=== PATIENT | male | born 1955 | race Caucasian/White ===

== ENCOUNTER 2024-07-24 16:51 | Emergency (ER) | payer OTHER ==
--- OUTSIDE RECORDS SUMMARY | 2024-07-24 16:56 | XMS REPORT | Continuity of Care Document ---
Author Name Unknown Address [address] [facility] [address] [place] [address] [facility] Address [address] [facility] [address] [place] [address] Care Team Providers Care Firer Low Pressure Name Role Phone Jason Crain Attending Clinician Unavailable Payers Payer Name Policy Type Policy Number Effective Date Expiration Date Source [facility] (MEDICARE REPLACEMENT HMO) [id number] 00:00:00 [place] [id number] [place] [id number] [place] [id number] [place] [id number] [place] [id number] [facility] Problems Condition Name Condition Details Condition Category Status Onset Date Resolution Date Last Treatment Date Treating Clinician Comments Source Chronic kidney disease stage 3 (disorder) Chronic kidney disease, stage 3 unspecifie d Problem [facility] [id number] Douglas's esophagus without dysplasia Problem [facility] [id number] KOURTNEY (generaliz ed anxiety disorder) Problem [facility] [id number] GERD without esophagiti s Problem [facility] [id number] Type 2 diabetes mellitus with diabetic chronic kidney disease Problem [facility] [id number] Mixed hyperlipid emia Problem [facility] [id number] Essential (primary) hypertensi on Problem [facility] [id number] Chewing tobacco nicotine dependence without complicati on Problem [facility] [id number] Type 2 diabetes mellitus with hyperglyce jie, without long-term current use of insulin Problem [facility] Anemia Anemia, unspecifie d type Problem [facility] [id number] Essential tremor Problem [facility] Allergies, Adverse Reactions, Alerts Allergy Name Allergy Type Status Severity Reaction(s) Onset Date Inactive Date Treating Clinician Comments Source sulfamet hoxazole / trimetho prim sulfamet hoxazole / trimetho prim Active Unknown [facility] Social History Social Habit Start Date Stop Date Quantity Comments Source History of Tobacco Use [facility] Sex Assigned At [facility] Smoking Status Start Date Stop Date Source Former Smoker 2024-07-05 00:00:00 2024-07-05 00:00:00 [facility] Medications Ordered Medication Name Filled Medication Name Start Date Stop Date Current Medication? Ordering Clinician Indication Dosage Frequency Signature (SIG) Comments Components Source Amoxicillin -Pot Clavulanate 500-125 MG Amoxicillin -Pot Clavulanate 500-125 MG 05-11 00:00: 00 No 1{table t} BID Amoxicilli n-Pot Clavulanat e 500-125 MG Promethazin e-DM 6.25-15 MG/5ML Promethazin e-DM 6.25-15 MG/5ML 05-11 00:00: 00 No 5{ml_as _needed } QID Promethazi ne-DM 6.25-15 MG/5ML Janumet XR 50mg/1,000m g Janumet XR 50mg/1,000m g No 1{table t} BID Janumet XR 50mg/1,000 mg Simvastatin 20 MG Simvastatin 20 MG No 1{table t_in_th e_eveni ng} QD Simvastati n 20 MG Valsartan-h ydroCHLOROt hiazide 160-12.5 MG Valsartan-h ydroCHLOROt hiazide 160-12.5 MG No 1{table t} QD Valsartan- hydroCHLOR Othiazide 160-12.5 MG Pantoprazol e Sodium 40 MG Pantoprazol e Sodium 40 MG No 1{table t} QD Pantoprazo le Sodium 40 MG Immunizations Ordered Immunization Name Filled Immunization Name Date Status Comments Source [facility] 2021-03-03 14:38:00 Completed [facility] 2021-03-03 14:38:[address] [facility] 2021-03-03 14:38:00 [facility] 2021-[facility]-03 14:38:[address] [facility] 2021-03-03 14:38:00 Completed [facility] Prevnar 13 (PCV13) Prevnar 13 (PCV13) 2020-04-10 11:02:00 Completed [facility] Prevnar 13 (PCV13) Prevnar 13 (PCV13) 2020-04-10 11:02:00 Completed [facility] Prevnar 13 (PCV13) Prevnar 13 (PCV13) 2020-04-10 11:02:00 Completed [facility] Prevnar 13 (PCV13) Prevnar 13 (PCV13) 2020-04-10 11:02:00 Completed [facility] Prevnar 13 (PCV13) Prevnar 13 (PCV13) 2020-04-10 11:02:00 Completed [facility] Prevnar 13 (PCV13) Prevnar 13 (PCV13) 2020-04-10 11:02:00 Completed [facility] Fluad (IIV) - SDS - 0.5mL Fluad (IIV) - SDS - 0.5mL 2020-02-09 11:02:00 Completed [facility] FluAD FluAD 2020-02-09 11:02:00 Completed [facility] FluAD FluAD 2020-02-09 11:02:00 Completed [facility] FluAD FluAD 2020-02-09 11:02:00 Completed [facility] FluAD FluAD 2020-02-09 11:02:00 Completed [facility] FluAD FluAD 2020-02-09 11:02:00 Completed [facility] FluAD FluAD Unknown Completed [facility] Fl[facility] Fluzone Unknown Completed [facility] Prevnar 13 (PCV13) Prevnar 13 (PCV13) Unknown Completed [facility] FluAD FluAD Unknown Com[facility] Fluzone Unknown Completed [facility] Prevnar 13 (PCV13) Prevnar 13 (PCV13) Unknown Completed [facility] FluAD FluAD Unknown Completed [facility] Fluzone Unknown Completed [facility] Prevnar 13 (PCV13) Prevnar 13 (PCV13) Unknown Completed [facility] FluAD FluAD Unknown Com[facility] Fl[facility] Fluzone Unknown Completed [facility] Prevnar 13 (PCV13) Prevnar 13 (PCV13) Unknown Completed [facility] FluAD FluAD Unknown Completed [facility] Fluzone Fluzone Unknown Completed [facility] Prevnar 13 (PCV13) Prevnar 13 (PCV13) Unknown Completed [facility] FluAD FluAD Unknown Com[facility] Fl[facility] Fluzone Unknown Com[facility] Prevnar 13 (PCV13) Prevnar 13 (PCV13) Unknown Completed [facility] FluAD FluAD Unknown Com[facility] Fluzone Unknown Com[facility] Prevnar 13 (PCV13) Prevnar 13 (PCV13) Unknown Completed [facility] FluAD FluAD Unknown Com[facility] Fl[facility] Fluzone Unknown Com[facility] Prevnar 13 (PCV13) Prevnar 13 (PCV13) Unknown Completed [facility] FluAD FluAD Unknown Com[facility] Fl[facility] Fluzone Unknown Com[facility] Prevnar 13 (PCV13) Prevnar 13 (PCV13) Unknown Completed [facility] FluAD FluAD Unknown Com[facility] Fl[facility] Fluzone Unknown Com[facility] Prevnar 13 (PCV13) Prevnar 13 (PCV13) Unknown Completed [facility] FluAD FluAD Unknown Com[facility] Fluzone Fluzone Unknown Com[facility] Prevnar 13 (PCV13) Prevnar 13 (PCV13) Unknown Completed [facility] FluAD FluAD Unknown Completed [facility] Fluzone Fluzone Unknown Com[facility] Prevnar 13 (PCV13) Prevnar 13 (PCV13) Unknown Completed [facility] FluAD FluAD Unknown Completed [facility] Fluzone Fluzone Unknown Completed [facility] Prevnar 13 (PCV13) Prevnar 13 (PCV13) Unknown Completed [facility] FluAD FluAD Unknown Completed [facility] Fluzone Fluzone Unknown Com[facility] Prevnar 13 (PCV13) Prevnar 13 (PCV13) Unknown Completed [facility] FluAD FluAD Unknown Completed [facility] Fl[facility] Fluzone Unknown Com[facility] Prevnar 13 (PCV13) Prevnar 13 (PCV13) Unknown Completed [facility] FluAD FluAD Unknown Completed [facility] Fluzone Fluzone Unknown Com[facility] Prevnar 13 (PCV13) Prevnar 13 (PCV13) Unknown Completed [facility] FluAD FluAD Unknown Completed [facility] Fluzone Fluzone Unknown Completed [facility] Prevnar 13 (PCV13) Prevnar 13 (PCV13) Unknown Completed [facility] FluAD FluAD Unknown Completed [facility] Fluzone Fluzone Unknown Completed [facility] Prevnar 13 (PCV13) Prevnar 13 (PCV13) Unknown Completed [facility] Vital Signs Vital Name Observation Time Observation Value Comments S ource height 2024-02-28 13:00:00 73 [in_i] Commo n [facility] weight 2024-02-28 13:00:00 194 [lb_av] Comm on [facility] temperature 2024-02-28 13:00:00 97.9 [degF] Com [facility] bmi 2024-02-28 13:00:00 25.59 kg/m2 Comm on [facility] oximetry 2024-02-28 13:00:00 97 % Commo n [facility] respiratory rate 2024-02-28 13:00:00 18 /min [facility] blood pressure systolic 2024-02-28 13:00:00 138 mm[Hg] [facility] blood pressure diastolic 2024-02-28 13:00:00 78 mm[Hg] [facility] height 2023-12-07 09:50:00 73 [in_i] Commo n [facility] weight 2023-12-07 09:50:00 195.4 [lb_av] Co mmon [facility] temperature 2023-12-07 09:50:00 97.6 [degF] Com [facility] bmi 2023-12-07 09:50:00 25.78 kg/m2 Comm on [facility] oximetry 2023-12-07 09:50:00 97 % Commo n [facility] blood pressure systolic 2023-12-07 09:50:00 132 mm[Hg] [facility] diastolic 2023-12-07 09:50:00 74 mm[Hg] [facility] height 2023-12-07 09:50:00 73 [in_i] Commo n [facility] weight 2023-12-07 09:50:00 195.4 [lb_av] Co on [facility] temperature 2023-12-07 09:50:00 97.6 [degF] Com [facility] bmi 2023-12-07 09:50:00 25.78 kg/m2 Comm on [facility] oximetry 2023-12-07 09:50:00 97 % Commo n [facility] blood pressure systolic 2023-12-07 09:50:00 132 mm[Hg] [facility] blood pressure diastolic 2023-12-07 09:50:00 74 mm[Hg] [facility] height 2023-07-12 10:00:00 73 [in_i] Commo n [facility] weight 2023-07-12 10:00:00 199.0 [lb_av] Co mmon [facility] temperature 2023-07-12 10:00:00 97.3 [degF] Com [facility] bmi 2023-07-12 10:00:00 26.25 kg/m2 Comm on [facility] oximetry 2023-07-12 10:00:00 97 % Commo n [facility] respiratory rate 2023-07-12 10:00:00 17 /min [facility] blood pressure systolic 2023-07-12 10:00:00 131 mm[Hg] [facility] blood pressure diastolic 2023-07-12 10:00:00 76 mm[Hg] Common [facility] height 2023-07-12 10:00:00 73 [in_i] Commo n [facility] weight 2023-07-12 10:00:00 199.0 [lb_av] Co [facility] temperature 2023-07-12 10:00:00 97.3 [degF] Com [facility] bmi 2023-07-12 10:00:00 26.25 kg/m2 Comm on [facility] oximetry 2023-07-12 10:00:00 97 % Commo n [facility] respiratory rate 2023-07-12 10:00:00 17 /min [facility] blood pressure systolic 2023-07-12 10:00:00 131 mm[Hg] Common [facility] blood pressure diastolic 2023-07-12 10:00:00 76 mm[Hg] [facility] height 2023-03-29 10:50:00 73 [in_i] Commo n [facility] weight 2023-03-29 10:50:00 200.4 [lb_av] Co [facility] temperature 2023-03-29 10:50:00 98.1 [degF] Com [facility] bmi 2023-03-29 10:50:00 26.44 kg/m2 Comm on [facility] oximetry 2023-03-29 10:50:00 98 % Commo n [facility] respiratory rate 2023-03-29 10:50:00 18 /min [facility] blood pressure systolic 2023-03-29 10:50:00 134 mm[Hg] [facility] blood pressure diastolic 2023-03-29 10:50:00 75 mm[Hg] Common [facility] height 2022-11-23 10:10:00 73 [in_i] Commo n [facility] weight 2022-11-23 10:10:00 198.8 [lb_av] Co mmon [facility] temperature 2022-11-23 10:10:00 97.5 [degF] Com [facility] bmi 2022-11-23 10:10:00 26.23 kg/m2 Comm on [facility] oximetry 2022-11-23 10:10:00 96 % Commo n [facility] respiratory rate 2022-11-23 10:10:00 17 /min [facility] blood pressure systolic 2022-11-23 10:10:00 138 mm[Hg] [facility] blood pressure diastolic 2022-11-23 10:10:00 76 mm[Hg] Common [facility] height 2022-10-01 10:20:00 73 [in_i] Commo n [facility] weight 2022-10-01 10:20:00 199 [lb_av] Comm on [facility] temperature 2022-10-01 10:20:00 98.1 [degF] Com [facility] bmi 2022-10-01 10:20:00 26.25 kg/m2 Comm on [facility] oximetry 2022-10-01 10:20:00 99 % Commo n [facility] respiratory rate 2022-10-01 10:20:00 17 /min [facility] blood pressure systolic 2022-10-01 10:20:00 134 mm[Hg] [facility] blood pressure diastolic 2022-10-01 10:20:00 78 mm[Hg] [facility] height 2022-09-01 11:10:00 73 [in_i] Commo n [facility] weight 2022-09-01 11:10:00 199 [lb_av] Comm on [facility] temperature 2022-09-01 11:10:00 97.2 [degF] Com mon [facility] bmi 2022-09-01 11:10:00 26.25 kg/m2 Comm on [facility] oximetry 2022-09-01 11:10:00 93 % Commo n [facility] respiratory rate 2022-09-01 11:10:00 17 /min [facility] blood pressure systolic 2022-09-01 11:10:00 136 mm[Hg] [facility] blood pressure diastolic 2022-09-01 11:10:00 76 mm[Hg] [facility] height 2022-09-01 11:20:00 73 [in_i] Commo n [facility] weight 2022-09-01 11:20:00 199 [lb_av] Comm on [facility] temperature 2022-09-01 11:20:00 97.2 [degF] Com [facility] bmi 2022-09-01 11:20:00 26.25 kg/m2 Comm on [facility] oximetry 2022-09-01 11:20:00 93 % Commo n [facility] respiratory rate 2022-09-01 11:20:00 17 /min [facility] blood pressure systolic 2022-09-01 11:20:00 136 mm[Hg] [facility] blood pressure diastolic 2022-09-01 11:20:00 76 mm[Hg] [facility] height 2022-05-25 14:10:00 73 [in_i] Commo n [facility] weight 2022-05-25 14:10:00 200.0 [lb_av] Co mmon [facility] temperature 2022-05-25 14:10:00 96.4 [degF] Com [facility] bmi 2022-05-25 14:10:00 26.38 kg/m2 Comm on [facility] oximetry 2022-05-25 14:10:00 98 % Commo n [facility] respiratory rate 2022-05-25 14:10:00 18 /min [facility] blood pressure systolic 2022-05-25 14:10:00 137 mm[Hg] [facility] blood pressure diastolic 2022-05-25 14:10:00 70 mm[Hg] [facility] height 2022-02-24 14:50:00 73 [in_i] Commo n [facility] weight 2022-02-24 14:50:00 201.9 [lb_av] Co on [facility] temperature 2022-02-24 14:50:00 96.6 [degF] Com [facility] bmi 2022-02-24 14:50:00 26.63 kg/m2 Comm on [facility] oximetry 2022-02-24 14:50:00 96 % Commo n [facility] respiratory rate 2022-02-24 14:50:00 17 /min [facility] blood pressure systolic 2022-02-24 14:50:00 135 mm[Hg] Common [facility] blood pressure diastolic 2022-02-24 14:50:00 73 mm[Hg] [facility] height 2021-12-01 14:30:00 73 [in_i] Commo n [facility] weight 2021-12-01 14:30:00 203.4 [lb_av] Co mmon [facility] temperature 2021-12-01 14:30:00 97.6 [degF] Com mon [facility] bmi 2021-12-01 14:30:00 26.83 kg/m2 Comm on [facility] oximetry 2021-12-01 14:30:00 97 % Commo n [facility] respiratory rate 2021-12-01 14:30:00 18 /min [facility] blood pressure systolic 2021-12-01 14:30:00 138 mm[Hg] [facility] blood pressure diastolic 2021-12-01 14:30:00 75 mm[Hg] [facility] height 2021-09-01 09:20:00 73 [in_i] Commo n [facility] weight 2021-09-01 09:20:00 204.8 [lb_av] Co mmon [facility] temperature 2021-09-01 09:20:00 97.0 [degF] Com mon [facility] bmi 2021-09-01 09:20:00 27.02 kg/m2 Comm on [facility] oximetry 2021-09-01 09:20:00 97 % Commo n [facility] respiratory rate 2021-09-01 09:20:00 18 /min [facility] blood pressure systolic 2021-09-01 09:20:00 137 mm[Hg] [facility] blood pressure diastolic 2021-09-01 09:20:00 72 mm[Hg] Common [facility] height 2021-09-01 09:40:00 73 [in_i] Commo n [facility] weight 2021-09-01 09:40:00 204.8 [lb_av] Co mmon [facility] temperature 2021-09-01 09:40:00 97.0 [degF] Com mon [facility] bmi 2021-09-01 09:40:00 27.02 kg/m2 Comm on [facility] oximetry 2021-09-01 09:40:00 97 % Commo n [facility] respiratory rate 2021-09-01 09:40:00 18 /min [facility] blood pressure systolic 2021-09-01 09:40:00 137 mm[Hg] [facility] blood pressure diastolic 2021-09-01 09:40:00 72 mm[Hg] [facility] height 2021-06-03 13:50:00 73 [in_i] Commo n [facility] weight 2021-06-03 13:50:00 204.7 [lb_av] Co [facility] temperature 2021-06-03 13:50:00 97.3 [degF] Com mon [facility] bmi 2021-06-03 13:50:00 27 kg/m2 Commo n [facility] oximetry 2021-06-03 13:50:00 100 % Commo n [facility] respiratory rate 2021-06-03 13:50:00 18 /min [facility] blood pressure systolic 2021-06-03 13:50:00 132 mm[Hg] [facility] blood pressure diastolic 2021-06-03 13:50:00 77 mm[Hg] [facility] height 2021-03-03 14:30:00 73 [in_i] Commo n [facility] weight 2021-03-03 14:30:00 206.7 [lb_av] Co [facility] temperature 2021-03-03 14:30:00 97.2 [degF] Com [facility] bmi 2021-03-03 14:30:00 27.27 kg/m2 Comm on [facility] oximetry 2021-03-03 14:30:00 99 % Commo n [facility] respiratory rate 2021-03-03 14:30:00 18 /min [facility] blood pressure systolic 2021-03-03 14:30:00 137 mm[Hg] [facility] blood pressure diastolic 2021-03-03 14:30:00 72 mm[Hg] [facility] height 2020-12-01 13:50:00 73 [in_i] Commo n [facility] weight 2020-12-01 13:50:00 204.7 [lb_av] Co mmon [facility] temperature 2020-12-01 13:50:00 98.8 [degF] Com mon [facility] bmi 2020-12-01 13:50:00 27 kg/m2 Commo n [facility] oximetry 2020-12-01 13:50:00 98 % Comm n [facility] respiratory rate 2020-12-01 13:50:00 16 /min [facility] blood pressure systolic 2020-12-01 13:50:00 135 mm[Hg] [facility] blood pressure diastolic 2020-12-01 13:50:00 71 mm[Hg] [facility] Encounters Start Date/Time End Date/Time Encounter Type Admission Type Attending [facility] Care Facility Care Department Encounter ID Source 2024-07-11 11:51:00 Outpatient Crain, Jason [facility] [id number] [facility] 2024-06-11 16:24:00 Outpatient Crain, Jason [facility] [id number] [facility] 2024-05-14 13:42:00 Outpatient Crain, Jason [facility] [id number] [facility] 2024-05-11 11:54:00 Outpatient Crain, Jason [facility] [id number] [facility] 2024-02-24 11:40:00 Outpatient Crain, Jason [facility] [id number] [facility] 2023-11-28 16:31:00 Outpatient Crain, Jason [facility] [id number] [facility] 2023-07-11 08:33:00 Outpatient Crain, Jason [facility] [id number] [facility] 2023-03-25 11:19:00 Outpatient Crain, Jason [facility] [id number] [facility] 2022-11-22 07:53:00 Outpatient Crain, Jason [facility] [id number] [facility] 2022-11-10 16:44:00 Outpatient Crain, Jason [facility] [id number] [facility] 2022-08-30 08:21:01 Outpatient Crain, Jason [facility] [id number] [facility] 2022-02-22 14:05:02 Outpatient Crain, Jason [facility] [id number] [facility] 2021-06-03 13:46:01 Outpatient Crain, Jason [facility] [id number] [facility] 2021-05-06 13:30:50 Outpatient Crain, Jason [facility] [id number] [facility] 2021-05-06 13:00:17 Outpatient Crain, Jason [facility] [id number] [facility] 2021-05-06 12:50:07 Outpatient Crain, Jason [facility] [id number] [facility] 2021-05-06 12:48:19 Outpatient [facility] [id number] [facility] 2024-07-10 00:00:00 2024-07-10 00:00:00 (TEL) [facility] [id number] [facility] 2024-07-02 00:00:00 2024-07-02 00:00:00 (TEL) [facility] ST[facility] [id number] [facility] 2024-06-19 00:00:00 2024-06-19 00:00:00 (TEL) [facility] ST[facility] [id number] [facility] 2024-06-13 00:00:00 2024-06-13 00:00:00 (TEL) ST[facility] ST[facility] [id number] [facility] 2024-06-11 00:00:00 2024-06-11 00:00:00 (TEL) ST[facility] ST[facility] [id number] [facility] 2024-05-31 00:00:00 2024-05-31 00:00:00 (TEL) STL[facility] ST[facility] [id number] [facility] 2024-05-28 00:00:00 2024-05-28 00:00:00 (TEL) STL[facility]C ST[facility] [id number] [facility] 2024-05-14 00:00:00 2024-05-14 00:00:00 (TEL) STL[facility]C ST[facility] [id number] [facility] 2024-05-11 00:00:00 2024-05-11 00:00:00 (TEL) STL[facility] ST[facility] [id number] [facility] 2024-05-11 00:00:00 2024-05-11 00:00:00 OFFICE VISIT ESTAB PT LEVEL 3 [facility] ST[facility] [id number] [facility] 2024-02-28 00:00:00 2024-02-28 00:00:00 OFFICE VISIT ESTAB PT LEVEL 4 [facility] [id number] [facility] 2023-12-23 00:00:00 2023-12-23 00:00:00 (TEL) ST[facility] ST[facility] [id number] [facility] 2023-12-07 00:00:00 2023-12-07 00:00:00 OFFICE VISIT ESTAB PT LEVEL 4 STLMLC STLMLC [id number] [facility] 2023-11-30 00:00:00 2023-11-30 00:00:00 (TEL) STLMLC STLMLC [id number] [facility] 2023-11-28 00:00:00 2023-11-28 00:00:00 (TEL) STLMLC STLMLC [id number] [facility] 2023-11-28 00:00:00 2023-11-28 00:00:00 (TEL) STLMLC STLMLC [id number] [facility] 2023-10-14 00:00:00 2023-10-14 00:00:00 (TEL) STLMLC STLMLC [id number] [facility] 2023-09-26 00:00:00 2023-09-26 00:00:00 (TEL) STLMLC STLMLC [id number] [facility] 2023-08-29 00:00:00 2023-08-29 00:00:00 (TEL) STLMLC STLMLC [id number] [facility] 2023-08-15 00:00:00 2023-08-15 00:00:00 (TEL) STLMLC STLMLC [id number] [facility] 2023-07-12 00:00:00 2023-07-12 00:00:00 OFFICE VISIT ESTAB PT LEVEL 4 STLMLC STLMLC [id number] [facility] 2023-07-12 00:00:00 2023-07-12 00:00:00 SUB ANNUAL [facility] VISIT STLMLC STLMLC [id number] [facility] 2023-05-31 00:00:00 2023-05-31 00:00:00 (TEL) STLMLC STLMLC [id number] [facility] 2023-04-20 00:00:00 2023-04-20 00:00:00 (TEL) STLMLC STLMLC [id number] [facility] 2023-03-29 00:00:00 2023-03-29 00:00:00 OFFICE VISIT ESTAB PT LEVEL 4 STLMLC STLMLC [id number] [facility] 2022-11-23 00:00:00 2022-11-23 00:00:00 OFFICE VISIT ESTAB PT LEVEL 4 STLMLC STLMLC [id number] [facility] 2022-11-15 00:00:00 2022-11-15 00:00:00 (TEL) STLMLC STLMLC [id number] [facility] 2022-11-10 00:00:00 2022-11-10 00:00:00 (TEL) STLMLC STLMLC [id number] [facility] 2022-11-05 00:00:00 2022-11-05 00:00:00 (TEL) STLMLC STLMLC [id number] [facility] 2022-10-01 00:00:00 2022-10-01 00:00:00 OFFICE VISIT ESTAB PT LEVEL 3 STLMLC STLMLC [id number] [facility] 2022 00:00:00 2022 00:00:00 (TEL) STLMLC STLMLC [id number] [facility] 2022-09-01 00:00:00 2022-09-01 00:00:00 OFFICE VISIT ESTAB PT LEVEL 4 STLMLC STLMLC [id number] [facility] 2022-09-01 00:00:00 2022-09-01 00:00:00 SUB ANNUAL [facility] VISIT STLMLC STLMLC [id number] [facility] 2022-07-08 00:00:00 2022-07-08 00:00:00 (TEL) STLMLC STLMLC [id number] [facility] 2022-05-25 00:00:00 2022-05-25 00:00:00 OFFICE VISIT ESTAB PT LEVEL 4 STLMLC STLMLC [id number] [facility] 2022-02-24 00:00:00 2022-02-24 00:00:00 OFFICE VISIT ESTAB PT LEVEL 4 STLMLC STLMLC [id number] [facility] 2022-02-12 00:00:00 2022-02-12 00:00:00 (TEL) STLMLC STLMLC [id number] [facility] 2021-12-01 00:00:00 2021-12-01 00:00:00 OFFICE VISIT ESTAB PT LEVEL 4 STLMLC STLMLC [id number] [facility] 2021-11-18 00:00:00 2021-11-18 00:00:00 (TEL) STLMLC STLMLC [id number] [facility] 2021-10-23 07:11:00 2021-10-23 07:11:00 Outpatient DMG DMG [id number] 0715 [facility] 2021-10-23 00:00:00 2021-10-23 00:00:00 Outpatient DMG DMG [id number] [facility] 2021-09-01 00:00:00 2021-09-01 00:00:00 OFFICE VISIT ESTAB PT LEVEL 4 STLMLC STLMLC [id number] [facility] 2021-09-01 00:00:00 2021-09-01 00:00:00 (TEL) STLMLC STLMLC [id number] [facility] 2021-09-01 00:00:00 2021-09-01 00:00:00 (TEL) STLMLC STLMLC [id number] [facility] 2021-09-01 00:00:00 2021-09-01 00:00:00 SUB ANNUAL [facility] VISIT STLMLC STLMLC [id number] [facility] 2021-06-03 00:00:00 2021-06-03 00:00:00 OFFICE VISIT ESTAB PT LEVEL 4 STLMLC STLMLC [id number] [facility] 2021-03-03 00:00:00 2021-03-03 00:00:00 OFFICE VISIT ESTAB PT LEVEL 4 STLMLC STLMLC [id number] [facility] 2021-01-09 00:00:00 2021-01-09 00:00:00 (TEL) STLMLC STLMLC [id number] [facility] 2020-12-24 00:00:00 2020-12-24 00:00:00 (TEL) STLMLC STLMLC [id number] [facility] 2020-12-04 00:00:00 2020-12-04 00:00:00 (TEL) STLMLC STLMLC [id number] [facility] 2020-12-01 00:00:00 2020-12-01 00:00:00 OFFICE VISIT ESTAB PT LEVEL 4 STLMLC STLMLC [id number] [facility] 2020-11-03 00:00:00 2020-11-03 00:00:00 Outpatient STLMLC STLMLC [id number] [facility] 2020-10-03 00:00:00 2020-10-03 00:00:00 Outpatient STLMLC STLMLC [id number] [facility] 2020-08-15 00:00:00 2020-08-15 00:00:00 Outpatient STLMLC STLMLC [id number] [facility] 2020-08-15 00:00:00 2020-08-15 00:00:00 Outpatient STLMLC STLMLC [id number] [facility] 2020-07-15 00:00:00 2020-07-15 00:00:00 Outpatient STLMLC STLMLC [id number] [facility] Results Test Description Test Time Test Comments Results Result Co mments Source [id number] 00:00:00* Test Item Value Reference Range Interpretation Comme nts FERRITIN (test code = 46325-6) 29 NG/ML See_Comment L [Automated messa ge] The system which generated this result transmitted reference range: 30-400 NG/ML. The reference range was not used to interpret this result as normal/abnormal. [id number] 00:00:00* Test Item Value Reference Range Interpretation Comme nts FERRITIN (test code = 43760-5) 33 NG/ML See_Comment [Automated messa ge] The system which generated this result transmitted reference range: 30-400 NG/ML. The reference range was not used to interpret this result as normal/abnormal. CBC W/AUTO [id number] 00:00:00* Test Item Value Reference Range Interpretation Comme nts NUCLEATED RBCS (test code = 13252-7) 0.0 /100 WBC'S See_Comment [Automated messa ge] The system which generated this result transmitted reference range: 0.0 /100 WBC'S. The reference range was not used to interpret this result as normal/abnormal. ABSOLUTE EOSINOPHILS (test code = 78212-0) 0.23 K/UL See_Comment [Automated messa ge] The system which generated this result transmitted reference range: 0.00-0.50 K/UL. The reference range was not used to interpret this result as normal/abnormal. ABSOLUTE LYMPHOCYTES (test code = 46748-3) 1.72 K/UL See_Comment [Automated messa ge] The system which generated this result transmitted reference range: 1.00-4.00 K/UL. The reference range was not used to interpret this result as normal/abnormal. ABSOLUTE MONOCYTES (test code = 79246-3) 0.48 K/UL See_Comment [Automated messa ge] The system which generated this result transmitted reference range: 0.20-1.00 K/UL. The reference range was not used to interpret this result as normal/abnormal. ABSOLUTE NEUTROPHILS (test code = 92974-5) 3.62 K/UL See_Comment [Automated messa ge] The system which generated this result transmitted reference range: 1.50-7.50 K/UL. The reference range was not used to interpret this result as normal/abnormal. BASOPHILS (test code = 38405-2) 1.0 % EOSINOPHILS (test code = 11272-7) 3.8 % HEMATOCRIT (test code = 88588-1) 39.0 % See_Comment L [Automated messa ge] The system which generated this result transmitted reference range: 40.0-51.0 %. The reference range was not used to interpret this result as normal/abnormal. HEMOGLOBIN (test code = 718-7) 13.0 G/DL See_Comment L [Automated messa ge] The system which generated this result transmitted reference range: 13.5-17.0 G/DL. The reference range was not used to interpret this result as normal/abnormal. LYMPHOCYTES (test code = 27846-6) 28.1 % MCH (test code = 77488-6) 30.8 PG See_Comment [Automated messa ge] The system which generated this result transmitted reference range: 25.0-33.0 PG. The reference range was not used to interpret this result as normal/abnormal. MCHC (test code = 21727-0) 33.3 G/DL See_Comment [Automated messa ge] The system which generated this result transmitted reference range: 31.0-36.0 G/DL. The reference range was not used to interpret this result as normal/abnormal. MCV (test code = 19866-2) 92.4 fL See_Comment [Automated messa ge] The system which generated this result transmitted reference range: 80.0-99.0 fL. The reference range was not used to interpret this result as normal/abnormal. MONOCYTES (test code = 89334-5) 7.8 % NEUTROPHILS (test code = 39732-0) 59.1 % PLATELET COUNT (test code = 26006-9) 281 K/UL See_Comment [Automated messa ge] The system which generated this result transmitted reference range: 130-400 K/UL. The reference range was not used to interpret this result as normal/abnormal. RBC (test code = 25002-1) 4.22 M/UL See_Comment L [Automated messa ge] The system which generated this result transmitted reference range: 4.50-6.10 M/UL. The reference range was not used to interpret this result as normal/abnormal. RDW (test code = 79473-1) 11.7 % See_Comment [Automated messa ge] The system which generated this result transmitted reference range: 11.5-15.0 %. The reference range was not used to interpret this result as normal/abnormal. WBC (test code = 29326-0) 6.1 K/UL See_Comment [Automated messa ge] The system which generated this result transmitted reference range: 3.5-11.0 K/UL. The reference range was not used to interpret this result as normal/abnormal.
[2024-07-24] MEDS ORDERED: carBAMazepine 200 MG TAB ONE (17:42)
--- NOTE | 2024-07-24 17:50 | RAD REPORT ---
EXAM: CT brain without contrast HISTORY: HEADACHE COMPARISON: None TECHNIQUE: Multiple contiguous axial images were obtained and a CT of the brain without contrast. Sag ittal and coronal reformats were performed. One or more of the following dose reduction techniques were used: Automated exposure control, adjust ment of the mA and/or kV according to patient size, and/or iterative reconstruction. FINDINGS: No evidence of hydrocephalus, intracranial hemorrhage, or extra-axial fluid collection. Mild brain atrophy with mild periventricular and deep white matter chronic microvascular ischemic ch anges present. No evidence of midline shift or areas of brain edema. The calvarium is intact. The visualized paranasal sinuses and mastoid air cells are essentially clear . Mild vertebral atherosclerosis present. IMPRESSION: No evidence of acute intracranial abnormality.
--- NOTE | 2024-07-24 18:58 | EDPHYS ---
Physician Documentation [facility] Name: Morgan Carvajal Age: 68 yrs Sex: Male : 1955 Arrival Date: 07/24/2024 Time: 16:51 Bed 11 Private MD: ED Physician Maxwell Tucker HPI: 07/24 17:56 This 68 yrs old Male presents to ER via Ambulatory with complaints of Headache. rt 17:56 Patient presents to the ED with a headache. Over the past 4 days, has had a dull very rt minor pain to the left side of his head. He will have these intermittent or painful shocks to the left hindu that are much more painful. These are only very brief in nature. He has never had similar symptoms previously. He has blurred vision complaints, symptoms are moderate severity no other aggravating or. Historical: - Allergies: 17:09 Bactrim; iw - PMHx: 17:09 Hypertensive disorder; Hypercholesterolemia; Diabetes mellitus; iw - PSHx: 17:09 left eye; iw - Immunization history:: Adult Immunizations. - Infectious Disease History:: Denies. - Social history:: Smoking status: Patient reports use of chewing tobacco. Smoking status: Patient reports the use of cigarette tobacco products, Patient/guardian denies using tobacco, but has a distant history of tobacco abuse. - Family history:: not pertinent. ROS: 17:56 Constitutional: Negative for fever, chills, and weight loss, Cardiovascular: Negative rt for chest pain, palpitations, and edema, Respiratory: Negative for shortness of breath, cough, wheezing, and pleuritic chest pain, Abdomen/GI: Negative for abdominal pain, nausea, vomiting, diarrhea, and constipation, Skin: Negative for injury, rash, and discoloration, 17:56 Neuro: Positive for headache, Negative for altered mental status, Exam: 17:56 Constitutional: This is a well developed, well nourished patient who is awake, alert, rt and in no acute distress. Head/Face: Normocephalic, atraumatic. Chest/axilla: Normal chest wall appearance and motion. Nontender with no deformity. No lesions are appreciated. Cardiovascular: Regular rate and rhythm with a normal S1 and S2. No gallops, murmurs, or rubs. Normal PMI, no JVD. No pulse deficits. Respiratory: Lungs have equal breath sounds bilaterally, clear to auscultation and percussion. No rales, rhonchi or wheezes noted. No increased work of breathing, no retractions or nasal flaring. Abdomen/GI: Soft, non-tender, with normal bowel sounds. No distension or tympany. No guarding or rebound. No evidence of tenderness throughout. Skin: Warm, dry with normal turgor. Normal color with no rashes, no lesions, and no evidence of cellulitis. MS/ Extremity: Pulses equal, no cyanosis. Neurovascular intact. Full, normal range of motion. Neuro: Awake and alert, GCS 15, oriented to person, place, time, and situation. Cranial nerves II-XII grossly intact. Motor strength 5/5 in all extremities. Sensory grossly intact. Cerebellar exam normal. Normal gait. Vital Signs: 17:02 BP 181 / 97; Pulse 91; Resp 18; Temp 98; Pulse Ox 100% on R/A; Weight 86.18 kg; Height iw 6 ft. 1 in. ; 17:56 BP 159 / 95; Pulse 90; Resp 16; Pulse Ox 98% on R/A; jb4 17:02 Body Mass Index 25.07 (86.18 kg, 185.42 cm) iw MDM: 17:02 Medical Screening Exam initiated rt 20:05 Differential diagnosis: Intracranial hemorrhage, migraine, trigeminal neuralgia. Data rt reviewed: vital signs, nurses notes, radiologic studies. Independent interpretation of the following test(s) in the Emergency Department CT Scan: My interpretation is No intracranial hemorrhage seen on interpretation of CT scan images. Test considered but Not performed: Other Details Stable vital signs, do not believe that labs are indicated.. Care significantly affected by the following chronic conditions: Hypertension. Counseling: I had a detailed discussion with the patient and/or guardian regarding the historical points, exam findings, and any diagnostic results supporting the discharge/admit diagnosis, the presence of at least one elevated blood pressure reading (>120/80) during this emergency department visit, radiology results, the need for outpatient follow up, to return to the emergency department if symptoms worsen or persist or if there are any questions or concerns that arise at home. Response to treatment: the patient's symptoms have mildly improved after treatment. 07/24 17:12 Order name: CT Head Brain wo Cont; Complete Time: 17:52 rt Administered Medications: 17:48 Drug: carBAMazepine PO 100 mg PO once Route: PO; jb4 19:14 Follow up: Response: No adverse reaction jb4 19:14 Drug: Ketorolac IM 30 mg IM once Route: IM; Site: right deltoid; jb4 19:14 Follow up: Response: Medication administered at discharge. jb4 Disposition Summary: 07/24/24 18:57 Discharge Ordered Notes: Location: Home rt Problem: new rt Symptoms: are unchanged rt Condition: Stable rt Diagnosis - Trigeminal neuralgia rt Followup: rt - With: Michael Jones MD - When: 2 - 3 days - Reason: Discharge Instructions: - Discharge Summary Sheet rt - Trigeminal Neuralgia rt Forms: - Medication Reconciliation Form rt - Antibiotic Education rt - Prescription Opioid Use rt - Patient Portal Instructions rt - Leadership Thank You Letter rt Prescriptions: - Tegretol 200 mg Oral Tablet - take 1 tablet ORAL route every 12 hours; 60 tablet; Refills: 0, Product rt Selection Permitted Signatures: Dispatcher [employer] Jolei Winkler RN RN iw Eliseo Bravo RN RN jb4 Maxwell Tucker MD MD rt
--- NOTE | 2024-07-24 18:58 | ER ---
Nurse's Notes [facility] Name: Morgan Carvajal Age: 68 yrs Sex: Male : 1955 Arrival Date: 07/24/2024 Time: 16:51 Bed 11 Private MD: Diagnosis: Trigeminal neuralgia Presentation: 07/24 17:02 Chief complaint: Patient states: dull left sided headache, with intermittent sharp pain iw in left mandaeism to left ear , feels like an electrical shock, started 4 days ago. Coronavirus screen: At this time, the client does not indicate any symptoms associated with coronavirus-19. Ebola Screen: No symptoms or risks identified at this time. Initial Sepsis Screen: Does the patient meet any 2 criteria? No. Patient's initial sepsis screen is negative. Does the patient have a suspected source of infection? No. Patient's initial sepsis screen is negative. Risk Assessment: Do you want to hurt yourself or someone else? Patient reports no desire to harm self or others. Onset of symptoms was July 20, 2024. 17:02 Method Of Arrival: Ambulatory iw 17:02 Acuity: BERTIN 3 iw Historical: - Allergies: 17:09 Bactrim; iw - PMHx: 17:09 Hypertensive disorder; Hypercholesterolemia; Diabetes mellitus; iw - PSHx: 17:09 left eye; iw - Immunization history:: Adult Immunizations. - Infectious Disease History:: Denies. - Social history:: Smoking status: Patient reports use of chewing tobacco. Smoking status: Patient reports the use of cigarette tobacco products, Patient/guardian denies using tobacco, but has a distant history of tobacco abuse. - Family history:: not pertinent. Screenin:56 [facility] ED Fall Risk Assessment (Adult) History of falling in the last 3 months, jb4 including since admission No falls in past 3 months (0 pts) Confusion or Disorientation No (0 pts) Intoxicated or Sedated No (0 pts) Impaired Gait No (0 pts) Mobility Assist Device Used No (0 pt) Altered Elimination No (0 pt) Score/Fall Risk Level 0 - 2 = Low Risk Oriented to surroundings, Maintained a safe environment. Abuse screen: Denies threats or abuse. Nutritional screening: No deficits noted. Tuberculosis screening: No symptoms or risk factors identified. Assessment: 17:56 General: Appears in no apparent distress. comfortable, Behavior is calm, cooperative, jb4 appropriate for age. Pain: Complains of pain in headache Pain does not radiate. Pain currently is 6 out of 10 on a pain scale. Neuro: Level of Consciousness is awake, alert, obeys commands, Oriented to person, place, time, situation. Cardiovascular: Patient's skin is warm and dry. Respiratory: Airway is patent Respiratory effort is even, unlabored, Respiratory pattern is regular, symmetrical. Derm: Skin is intact, Skin is pink, warm \T\ dry. Musculoskeletal: Circulation, motion, and sensation intact. Range of motion: intact in all extremities. Vital Signs: 17:02 BP 181 / 97; Pulse 91; Resp 18; Temp 98; Pulse Ox 100% on R/A; Weight 86.18 kg; Height iw 6 ft. 1 in. ; 17:56 BP 159 / 95; Pulse 90; Resp 16; Pulse Ox 98% on R/A; jb4 17:02 Body Mass Index 25.07 (86.18 kg, 185.42 cm) iw ED Course: 16:57 Patient arrived in ED. im 17:02 Maxwell Tucker MD is Attending Physician. rt 17:04 Triage completed. iw 17:11 Arm band placed on. iw 17:37 CT Head Brain wo Cont In Process Unspecified. EDMS 17:55 Eliseo Bravo, HIEN is Primary Nurse. jb4 17:56 Patient has correct armband on for positive identification. Bed in low position. Call jb4 light in reach. Side rails up X 1. Provided Education on: plan of care. 17:56 No provider procedures requiring assistance completed. jb4 18:57 Michael Jones MD is Referral Physician. rt 19:15 Patient did not have IV access during this emergency room visit. jb4 Administered Medications: 17:48 Drug: carBAMazepine PO 100 mg PO once Route: PO; jb4 19:14 Follow up: Response: No adverse reaction jb4 19:14 Drug: Ketorolac IM 30 mg IM once Route: IM; Site: right deltoid; jb4 19:14 Follow up: Response: Medication administered at discharge. jb4 Medication: 17:56 VIS not applicable for this client. jb4 Outcome: 18:57 Discharge ordered by . rt 19:15 Discharged to home ambulatory, jb4 19:15 Condition: stable 19:15 Discharge instructions given to patient, Instructed on discharge instructions, follow up and referral plans. medication usage, Demonstrated understanding of instructions, follow-up care, medications, Prescriptions given X 1, 19:15 Patient left the ED. jb4 Signatures: Dispatcher [employer] EDJolie Beal, RN Eliseo Rudd RN RN jb4 Maxwell Tucker MD MD Elda Echols Corrections: (The following items were deleted from the chart) 17:11 17:02 BP 181 / 97; Pulse 91bpm; Resp 18bpm; Pulse Ox 100% RA; Temp 98F; iw mickie
[2024-07-24] MEDS ORDERED: KETOROLAC 30 MG/ML INJ ONE (19:08)
[2024-07-24 19:27] VITALS: BP 159/95; TEMP 98; O2SAT 98
== END 2024-07-24 19:15 | disposition home or self-care (01) ==
LOC: ER 16:51
DX: G50.0 Trigeminal neuralgia (principal); F17.220 Nicotine dependence, chewing tobacco, uncomplicated
CPT/HCPCS: 70450

== ENCOUNTER 2024-08-01 06:39 | Day surgery (SDC) | payer OTHER ==
[2024-08-01] MEDS: NA CHLORIDE 0.9% 1,000 ML ONE (07:05)
[2024-08-01 07:58] VITALS: O2SAT 100
--- NOTE | 2024-08-01 08:24 | RAD REPORT ---
EXAMINATION: ONE VIEW CHEST XR CLINICAL INDICATION: Male, 68 years old.,pre-op. Hypertension TECHNIQUE: Frontal chest projection is submitted. Examination is limited by patient positioning and t echnique. COMPARISON: 09/27/2007. FINDINGS: The lungs are well inflated and clear. No pneumothorax or sizable effusion. The heart is normal in s ize. Mediastinal contours are unremarkable. IMPRESSION: No acute intrathoracic abnormalities.
[2024-08-01] MEDS ORDERED: MIDAZOLAM HCL 2 MG/2 ML INJ ONE (08:42)
[2024-08-01] MEDS ORDERED: LIDOCAINE 1% MPF 5 ML VIAL ONE (08:42)
[2024-08-01] MEDS ORDERED: FENTANYL CITR 100 MCG/2 ML ONE (08:42)
[2024-08-01] MEDS ORDERED: propofoL 200 MG/20 ML VIAL IV ONE (08:42)
[2024-08-01] MEDS: CEFAZOLIN SODIUM 2 GM/VIAL ONE (09:15)
[2024-08-01] MEDS ORDERED: EPHEDRINE SULF 50 MG/ML VIAL ONE (09:20)
[2024-08-01] MEDS: LIDOCAINE 1% 20 ML MDV ONE (09:27)
[2024-08-01] MEDS ORDERED: Mastisol Adhesive Liq ONE (09:49)
--- NOTE | 2024-08-01 10:07 | P.OP ---
Date of Service: 08/01/24 Preop diagnosis: Left-sided headache, rule out temporal arteritis Postop diagnosis: Same Procedure performed: Left temporal artery biopsy with utilization of Doppler device Surgeon: Emigdio Jacob MD Feather Renovator: None Estimated blood loss: Minimal Specimen: Branch of the left temporal artery Findings: As above Anesthesia: General Complications: None Drains: None Fluids and blood products: Nonapplicable Disposition: Recovery room Operative note: Patient brought to the OR and placed in supine position. General anesthesia began. Patient prepped and draped in usual sterile fashion. Doppler device used to identify a branch of the temporal artery on the left side. Lidocaine 1% infiltrated locally. 15 blade used to make a 4 cm incision over the left pleural artery branch. Subcutaneous tissue divided and bleeding controlled cautery. Proximal and distal aspect of the artery identified with sharp and blunt dissection. A 4 cm segment excised and sent to pathology as specimen. Wound irrigated bleeding controlled with cautery and then 4-0 chromic used to approximate subcutaneous tissue and close skin. Sterile dressing applied. Patient awakened and taken to recovery room in good general condition. CC: Dr. Jones and Paras's office
[2024-08-01 12:16] VITALS: BP 122/85
[2024-08-01 12:17] VITALS: TEMP 97
--- NOTE | 2024-08-01 12:33 | EKG ---
Test Date: 2024-08-01 Test Time: 07:26:45 Wafer Slicer: FREDERIC MEASUREMENT RESULTS: Intervals: Rate: 75 [place]: 154 QRSD: 94 QT: 386 QTc: 431 [place]: P: 64 [place]: 154 QRS: -26 T: 46 INTERPRETIVE STATEMENTS: Normal sinus rhythm Normal ECG Compared to ECG 11/28/2003 14:19:00 No significant changes Electronically Signed On 08-01-24 12:32:27 CDT by Mario Robledo
== END 2024-08-01 11:27 | disposition home or self-care (01) ==
LOC: OR 06:39
PROVIDERS: ATTEND Surgery
PROC: 03BT0ZX Excision of Left Temporal Artery, Open Approach, Diagnostic (ICD-10-PCS; principal; 2024-08-01 08:45)
DX: R51.0 Headache with orthostatic component, not elsewhere classified (principal)
CPT/HCPCS: 93005; 82947 ×2; 88305; 71045; 37609; J2704; J2003 ×2; J2250; J3010; J7030